=== PATIENT | female | born 1990 | race African-American/Black ===

== ENCOUNTER 2016-11-09 11:52 | Day surgery (SDC) | payer OTHER ==
--- NOTE | ~2016-11-09 | OP ---
Record Of Operation [facility] [address] [place]. [address] NAME: JOEL KEE : 89 STATUS : [facility]#: [id number] AGE: 26 ADM/REG DATE : 11/09/16 MR#: [id number] REPORT SERV DATE: 11/14/16 DICTATED BY: DATE: REPORT STATUS : Draft TRANSCRIBED BY: MODL DATE: 11/14/16 DATE OF PROCEDURE: 11/09/2016 PREOPERATIVE DIAGNOSIS: Painful hammertoe deformity, left and right 5th digit. POSTOPERATIVE DIAGNOSIS: Painful hammertoe deformity, left and right 5th digit. NAME OF OPERATION: Arthroplasty of the 5th PIPJ with Smart toe implant, 5th digit right foot and left foot. ANESTHESIA: General. HEMOSTASIS: Pneumatic ankle tourniquets. ESTIMATED BLOOD LOSS: Less than 3 mL. PROCEDURE IN DETAIL: Under mild sedation, the patient was brought to the operating room and placed on the operating table in supine position. After sedation, pneumatic ankle tourniquets were placed about the patient's right and left ankles. The foot was then scrubbed, prepped, and draped in the usual aseptic manner. An Esmarch bandage was utilized to exsanguinate the patient's right foot and pneumatic ankle tourniquet was inflated to 250 mmHg. Attention was then directed to the 5th digit right foot where two semi-elliptical oblique incisions were made from distal-medial to proximal-lateral around the hypertrophic skin. The incision was deepened through subcutaneous tissue with care being taken to identify and retract all vital neurovascular structures. The ellipse of skin was removed in toto and passed from the operative field. All bleeders were cauterized as necessary. Attention was then directed to the extensor tendon where a transverse tenotomy and capsulotomy was performed over the PIPJ. The extensor tendon was dissected free of its osseous attachment and reflected proximally and distally exposing the head and distal shaft of the proximal phalanx and the base of the middle phalanx of the 5th digit right foot at the operative site. The collateral ligaments were released from their attachment to the proximal phalanx. At this time, using an oscillating bone saw, the head of the proximal phalanx was resected in toto and passed from the operative field. Next, the cartilage was removed from the implant set. The base of the middle phalanx was cleared of its articular cartilage. The wound was then flushed with copious amounts of normal saline. The proximal phalanx and middle phalanx were prepared for the Smart toe implant and a neutral implant was placed across the PIPJ with excellent alignment noted. The implant was viewed under intraoperative fluoroscopy and noted to be in good alignment. The extensor tendon was reapproximated and coapted utilizing 3-0 Vicryl. Subcutaneous tissue was reapproximated and coapted utilizing 4-0 Vicryl. The skin was reapproximated and coapted utilizing 4-0 nylon in a horizontal mattress in simple interrupted suture technique. Pneumatic ankle tourniquet was then deflated and a prompt hyperemic response noted to all digits of the right foot. Esmarch bandage was utilized to exsanguinate the patient's left foot and the pneumatic ankle tourniquet inflated to 250 mmHg. Attention was then directed to the dorsal aspect of the left 5th digit where two semi-elliptical oblique incisions were made from distal-medial to proximal-lateral around the hypertrophic skin lesion over the PIPJ. The incision was Record Of Operation [facility] [address] [facility] [place]. [address] NAME: JOEL KEE : 89 STATUS : [facility]#: [id number] AGE: 26 ADM/REG DATE : 11/09/16 MR#: [id number] REPORT SERV DATE: 11/14/16 DICTATED BY: DATE: REPORT STATUS : Draft TRANSCRIBED BY: MODL DATE: 11/14/16 deepened to the subcutaneous tissue with care being taken to identify and retract all vital neurovascular structures. The ellipse of skin was removed in toto and passed from the operative field. Attention was then directed to the PIPJ and the extensor tendon over the joint where a transverse tenotomy and capsulotomy was performed. The extensor tendon was reflected proximally and distally exposing the head of the proximal phalanx and the base of the middle phalanx at the operative site. Next, utilizing an oscillating bone saw, the head of the proximal phalanx was resected in toto and passed from the operative field. The cartilage was removal from the implant set, was utilized to remove the articular cartilage from the base of the middle phalanx. The wound was then flushed with copious amounts of normal sterile saline. The proximal phalanx and the middle phalanx were prepared for the Smart toe implant. A neutral Smart toe implant was placed across the PIPJ with excellent alignment noted. The extensor tendon was reapproximated and coapted utilizing 4-0 Vicryl and. The subcutaneous tissues were reapproximated and coapted utilizing 4-0 Vicryl and the skin was reapproximated and coapted utilizing 4 nylon in a horizontal mattress in simple interrupted suture technique. A postoperative block consisting of 5 mL of 0.5% Marcaine plain was injected into the left and right 5th digits. Pneumatic ankle tourniquet was then deflated and a prompt hyperemic response was noted to all digits of the left foot. Dressings were applied to the left and right 5th digits using Xeroform gauze, 4 x 4 gauze, and 2-inch Conform gauze wrap. Fred wrap and postoperative shoe were then applied to the left and right foot. The patient was discharged to the PACU with vital signs stable and vascular status intact. Following a period of postop monitoring, the patient was discharged home on written and oral postop instructions. 1. Keep dressing dry and intact, right and left foot. 2. Ice and elevate right and left foot at rest. 3. The patient to ambulate in postop shoe when ambulating. 4. The patient to call Dr. Rosenbaum for all postoperative followup care and if any problems arise. 5. The patient was given prescription for [place] 10/325 mg one tab to be taken by mouth as needed for pain. Phenergan 25 mg one tab to be taken by mouth as needed for nausea. /ES Ciro Rosenbaum DPM / [id number] CC: ISHMAEL Carranza M.D.
[~2016-11-09 11:52] MED LIST: T PO
[2016-11-09 12:20] LABS: HEMATOCRIT 39.7 % (36.0-48.0); HEMOGLOBIN 13.8 g/dL (12.0-16.0)
[2016-11-09 12:34] LABS: BUN (BLOOD UREA NITROGEN) 11 MG/DL (6-23); CALCIUM, SERUM 8.3 MG/DL (8.5-10.4); CHLORIDE, SERUM 105 MMOL/L (96-112); CO2 (CARBON DIOXIDE) 26 MMOL/L (24-34); CREATININE 0.97 MG/DL (0.55-1.02); GFR AFRICAN AMERICAN 95 ML/MIN (>=60); GFR NON AFRICAN AMERICAN 82 ML/MIN (>=60); GLUCOSE, SERUM 81 MG/DL (60-99); POTASSIUM, SERUM 4.1 MMOL/L (3.5-5.3); SODIUM, SERUM 140 MMOL/L (135-148)
== END 2016-11-09 19:27 | disposition home or self-care (01) ==
LOC: SDC 11:52
PROVIDERS: Podiatrist
PROC: 0SRQ0JZ Replacement of Left Toe Phalangeal Joint with Synthetic Substitute, Open Approach (ICD-10-PCS; principal; 2016-11-09 12:45)
DX: M20.42 Other hammer toe(s) (acquired), left foot (principal); M20.41 Other hammer toe(s) (acquired), right foot; Z53.9 Procedure and treatment not carried out, unspecified reason
CPT/HCPCS: 76000; 80048; 84703; 85014; 85018; A9270-GY; C1776; J0690; J2250; J2405; J3010